=== PATIENT | male | born 1955 | race Caucasian/White ===

== ENCOUNTER 2021-06-15 03:03 | Inpatient (IN) | payer MEDICARE ==
[~2021-06-15] VITALS: Ht 167.6 cm; Wt 90.9 kg
[2021-06-15 03:16] VITALS: BP 119/76
[2021-06-15 03:30] LABS: BASO # 0.1 10*3/uL (0.0-0.1); BASO % 0.5 % (0.0-1.0); EOS # 0.2 10*3/uL (0.0-0.4); LYMPH # 1.5 10*3/uL (1.3-4.4); LYMPH % 13.7 % (27.0-41.0); MEAN CELL VOLUME 94.4 fl (80.0-94.0); MEAN CORPUSCULAR HGB 32.8 pg (27.0-31.0); MEAN CORPUSCULAR HGB CONC 34.8 g/dl (33.0-37.0); MONO # 0.6 10*3/uL (0.1-1.0); MONO % 5.1 % (3.0-9.0); NEUT # 8.5 10*3/uL (2.3-7.9); NEUT % 77.3 % (47.0-73.0); PLATELET COUNT AUTOMATED 241 10*3/uL (130-400); RED BLOOD COUNT 4.66 10*6/uL (4.50-5.90); RED CELL DISTRI WIDTH 12.1 % (0-14.5); WHITE BLOOD COUNT 10.9 10*3/uL (4.8-10.8)
[2021-06-15 03:56] LABS: ALBUMIN 3.2 gm/dl (3.1-4.5); ALKALINE PHOSPHATASE 71 U/L (45-117); BUN 6 mg/dl (7-24); CHLORIDE 102 mmol/L (98-107); CREATININE 0.62 mg/dL (0.70-1.30); POTASSIUM 4.3 mmol/L (3.5-5.1); SGOT/AST 69 IU/L (3-35); SGPT/ALT 104 U/L (12-78); SODIUM 132 mmol/L (136-145); TOTAL PROTEIN 6.9 gm/dL (6.4-8.2)
[2021-06-15 03:57] LABS: CPK 275 U/L (39-308)
[2021-06-15 04:11] LABS: INTERNATIONAL NORM RATIO 0.9 (2.0-3.5)
[2021-06-15 05:33] VITALS: BP 115/74
[2021-06-15 13:30] VITALS: BP 120/69
[2021-06-15 16:00] VITALS: BP 124/60
[2021-06-15 20:00] VITALS: BP 131/72
[2021-06-16] VITALS: BP 124/78
[2021-06-16 06:26] LABS: ALBUMIN 2.6 gm/dl (3.1-4.5); ALKALINE PHOSPHATASE 63 U/L (45-117); BASO # 0.1 10*3/uL (0.0-0.1); BASO % 0.8 % (0.0-1.0); BUN 9 mg/dl (7-24); CHLORIDE 110 mmol/L (98-107); CREATININE 0.68 mg/dL (0.70-1.30); EOS # 0.2 10*3/uL (0.0-0.4); EOS % 2.6 % (1.0-4.0); LYMPH # 1.7 10*3/uL (1.3-4.4); LYMPH % 23.2 % (27.0-41.0); MEAN CELL VOLUME 95.8 fl (80.0-94.0); MEAN CORPUSCULAR HGB 32.2 pg (27.0-31.0); MEAN CORPUSCULAR HGB CONC 33.7 g/dl (33.0-37.0); MEAN PLATELET VOLUME 10.7 fl (9.6-12.3); MONO % 13.6 % (3.0-9.0); NEUT # 4.3 10*3/uL (2.3-7.9); NEUT % 58.8 % (47.0-73.0); PLATELET COUNT AUTOMATED 221 10*3/uL (130-400); POTASSIUM 3.9 mmol/L (3.5-5.1); RED BLOOD COUNT 4.28 10*6/uL (4.50-5.90); RED CELL DISTRI WIDTH 12.5 % (0-14.5); SGOT/AST 47 IU/L (3-35); SGPT/ALT 74 U/L (12-78); SODIUM 141 mmol/L (136-145); TOTAL PROTEIN 5.9 gm/dL (6.4-8.2); WHITE BLOOD COUNT 7.3 10*3/uL (4.8-10.8)
[2021-06-16 08:00] VITALS: BP 129/80
[2021-06-16 12:00] VITALS: BP 123/83; BP 164/76
[2021-06-16 16:00] VITALS: BP 129/70
[2021-06-16 20:00] VITALS: BP 137/72
[2021-06-17] VITALS (11 sets, daily range): BP systolic 118–158; BP diastolic 58–82
[2021-06-18] VITALS: BP 116/62
[2021-06-18 06:43] LABS: BASO % 0.1 % (0.0-1.0); EOS % 0.1 % (1.0-4.0); HEMATOCRIT 37.4 % (42.0-52.0); LYMPH # 0.8 10*3/uL (1.3-4.4); LYMPH % 5.3 % (27.0-41.0); MEAN CELL VOLUME 96.9 fl (80.0-94.0); MEAN CORPUSCULAR HGB 33.2 pg (27.0-31.0); MEAN CORPUSCULAR HGB CONC 34.2 g/dl (33.0-37.0); MONO # 1.4 10*3/uL (0.1-1.0); MONO % 9.5 % (3.0-9.0); NEUT % 83.9 % (47.0-73.0); PLATELET COUNT AUTOMATED 252 10*3/uL (130-400); RED BLOOD COUNT 3.86 10*6/uL (4.50-5.90); RED CELL DISTRI WIDTH 12.1 % (0-14.5); WHITE BLOOD COUNT 14.4 10*3/uL (4.8-10.8)
[2021-06-18 08:00] VITALS: BP 126/68
[2021-06-18 12:00] VITALS: BP 132/72
[2021-06-18 16:00] VITALS: BP 132/62
[2021-06-18 20:00] VITALS: BP 120/62
[2021-06-19] VITALS: BP 132/71; BP 163/78
[2021-06-19 06:45] LABS: CREATININE 0.77 mg/dL (0.70-1.30)
[2021-06-19 08:00] VITALS: BP 151/84
[2021-06-19] MEDS ORDERED: ASPIRIN ADULT L81 M2 PO (11:23)
[2021-06-19] MEDS ORDERED: VITAMIN D350 MC2 PO (11:23)
[2021-06-19] MEDS ORDERED: ATARAX,VISTARIL50 MG PO (11:23)
[2021-06-19] MEDS ORDERED: DOCUSATE SOD100 MG PO (11:23)
[2021-06-19] MEDS ORDERED: HYDROCODONE-AC1 EAC1 PO (11:23)
== END 2021-06-19 12:49 | disposition home health service (06) | DRG 493 ==
LOC: ED 03:03 → EDHOLD 11:57 → 4E 11:57
PROVIDERS: Internal Medicine; Orthopaedic Surgery; ADMIT Student in an Organized Health Care Education/Training Program; ATTEND Student in an Organized Health Care Education/Training Program
PROC: 2W3MX1Z Immobilization of Left Lower Extremity using Splint (ICD-10-PCS; 2021-06-15)
PROC: 0QSH06Z Reposition Left Tibia with Intramedullary Internal Fixation Device, Open Approach (ICD-10-PCS; principal; 2021-06-17)
PROC: 3E0T3BZ Introduction of Anesthetic Agent into Peripheral Nerves and Plexi, Percutaneous Approach (ICD-10-PCS; 2021-06-17)
PROC: 3E0T33Z Introduction of Anti-inflammatory into Peripheral Nerves and Plexi, Percutaneous Approach (ICD-10-PCS; 2021-06-17)
DX: S82.252A Displaced comminuted fracture of shaft of left tibia, initial encounter for closed fracture (principal); E87.1 Hypo-osmolality and hyponatremia; E87.2 Acidosis; E83.41 Hypermagnesemia; R73.9 Hyperglycemia, unspecified; E83.51 Hypocalcemia; R74.01 Elevation of levels of liver transaminase levels; F17.210 Nicotine dependence, cigarettes, uncomplicated; S82.402A Unspecified fracture of shaft of left fibula, initial encounter for closed fracture; F10.229 Alcohol dependence with intoxication, unspecified; Y90.6 Blood alcohol level of 120-199 mg/100 ml; X58.XXXA Exposure to other specified factors, initial encounter; Y93.89 Activity, other specified; Y92.89 Other specified places as the place of occurrence of the external cause; Z71.6 Tobacco abuse counseling; Y99.8 Other external cause status

== ENCOUNTER → 2021-07-02 | Outpatient (CLI) | payer MEDICARE ==
[~2021-07-02] MED LIST: ASPIRIN ADULT L81 M2 PO; ATARAX,VISTARIL50 MG PO; DOCUSATE SOD100 MG PO; HYDROCODONE-AC1 EAC1 PO; VITAMIN D350 MC2 PO
== END | disposition home or self-care (01) ==
LOC: ORTHO 00:13
PROVIDERS: ATTEND Orthopaedic Surgery
DX: S82.252D Displaced comminuted fracture of shaft of left tibia, subsequent encounter for closed fracture with routine healing (principal); S82.65XD Nondisplaced fracture of lateral malleolus of left fibula, subsequent encounter for closed fracture with routine healing; X58.XXXD Exposure to other specified factors, subsequent encounter

== ENCOUNTER → 2021-07-30 | Outpatient (CLI) | payer MEDICARE | END | disposition home or self-care (01) | LOC: ORTHO 09:50 | PROVIDERS: ATTEND Nurse Practitioner | DX: S82.252D Displaced comminuted fracture of shaft of left tibia, subsequent encounter for closed fracture with routine healing (principal); S82.65XD Nondisplaced fracture of lateral malleolus of left fibula, subsequent encounter for closed fracture with routine healing; X58.XXXD Exposure to other specified factors, subsequent encounter ==

== ENCOUNTER → 2021-09-04 | Outpatient (CLI) | payer MEDICARE | END | disposition home or self-care (01) | LOC: ORTHO 08:50 | PROVIDERS: ATTEND Orthopaedic Surgery | DX: S62.252D Displaced fracture of neck of first metacarpal bone, left hand, subsequent encounter for fracture with routine healing (principal); S82.65XD Nondisplaced fracture of lateral malleolus of left fibula, subsequent encounter for closed fracture with routine healing; X58.XXXD Exposure to other specified factors, subsequent encounter ==

== ENCOUNTER → 2021-10-17 | Outpatient (CLI) | payer MEDICARE | END | disposition home or self-care (01) | LOC: ORTHO 01:24 | PROVIDERS: ATTEND Orthopaedic Surgery | DX: S82.65XD Nondisplaced fracture of lateral malleolus of left fibula, subsequent encounter for closed fracture with routine healing (principal); S82.232D Displaced oblique fracture of shaft of left tibia, subsequent encounter for closed fracture with routine healing; S82.252D Displaced comminuted fracture of shaft of left tibia, subsequent encounter for closed fracture with routine healing; X58.XXXD Exposure to other specified factors, subsequent encounter ==

== ENCOUNTER → 2022-03-06 | Outpatient (CLI) | payer MEDICARE | END | disposition home or self-care (01) | LOC: ORTHO 01:11 | PROVIDERS: ATTEND Orthopaedic Surgery | DX: S82.252D Displaced comminuted fracture of shaft of left tibia, subsequent encounter for closed fracture with routine healing (principal); X58.XXXD Exposure to other specified factors, subsequent encounter ==